=== PATIENT | female | born 2005 | race Two or more races ===

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

== ENCOUNTER 2024-01-12 20:26 | Emergency (ER) | payer MEDICAID ==
[~2024-01-12] VITALS: Ht 162.6 cm; Wt 65.0 kg
[~2024-01-12 20:26] MED LIST changes: +CEFP200T15 PO; +FOLI-119 PO; +PREN-96 PO
[2024-01-12] MEDS: ACETAMINOPHEN 500 MG TAB PO ONE (22:13)
[2024-01-12] MEDS: ONDANSETRON ODT 4 MG TAB PO ONE (22:18)
[2024-01-13 00:04] LABS: Urine Bacteria FEW /hpf (None Seen); Urine Blood Negative /uL (Negative); Urine Clarity Turbid (Clear); Urine Color Yellow (Yellow); Urine Mucus FEW (None Seen); Urine Protein, UAD TRACE (Negative); Urine Urobilinogen Normal (Negative); Urine WBC 26 /hpf (0 - 5); Urine pH 5.5 (5.0-9.0)
[2024-01-13] MEDS ORDERED: NITR-87 PO (00:28)
[2024-01-13] MEDS ORDERED: ZOFR4T PO (00:28)
[2024-01-13] MEDS ORDERED: ACET500T58 PO (00:28)
[2024-01-13] MEDS: NITROFURANTOIN 100 mg CAP PO ONE (00:34)
[2024-01-13 00:40] VITALS: BP 123/62; PULSE 74; RESP 16; TEMP 98.2; O2SAT 100
== END 2024-01-13 00:42 | disposition home or self-care (01) ==
LOC: ER 20:26
DX: O23.41 Unspecified infection of urinary tract in pregnancy, first trimester (principal); Z3A.01 Less than 8 weeks gestation of pregnancy; Z79.899 Other long term (current) drug therapy
CPT/HCPCS: 81001; 99284; Q0162

== ENCOUNTER 2024-03-12 18:14 | Inpatient (IN) | payer MEDICAID ==
[~2024-03-12] VITALS: Ht 160 cm; Wt 58.6 kg
[~2024-03-12 18:14] MED LIST changes: +ACET500T58 PO; +NITR-87 PO
[2024-03-12 19:38] LABS: Urine Bacteria MOD /hpf (None Seen); Urine Blood Negative /uL (Negative); Urine Clarity Turbid (Clear); Urine Color Yellow (Yellow); Urine Mucus MODERATE (None Seen); Urine Protein, UAD 1+ (Negative); Urine Specific Gravity 1.026 (1.001-1.035); Urine Urobilinogen 4 mg/dL (Negative); Urine WBC 13 /hpf (0 - 5); Urine pH 5.5 (5.0-9.0)
[2024-03-12 19:52] LABS: Basophils # (auto) 0 10 ^3/uL (0-0.2); Basophils % (auto) 0.1 % (0.0-2.0); Eosinophils # (auto) 0 10 ^3/uL (0-0.8); Hematocrit 31.8 % (36.0-46.0); Hemoglobin 11.2 g/dL (12.2-16.2); Lymphocytes # (auto) 0.8 10 ^3/uL (0.4-5.4); Lymphocytes % (auto) 4.4 % (10.0-50.0); Mean Corpuscular Hemoglobin 32.6 pg (28.0-32.0); Mean Corpuscular Hgb Conc. 35.2 g/dL (32.0-36.0); Mean Corpuscular Volume 92.5 fL (80.0-100.0); Monocytes # (auto) 1.1 10 ^3/uL (0-1.3); Monocytes % (auto) 5.8 % (0.0-12.0); Neutrophils # (auto) 16.3 10 ^3/uL (1.6-8.6); Neutrophils % (auto) 89.7 % (37.0-80.0); Red Blood Cells 3.44 10^6/uL (4.0-5.20); Red Cell Distribution Width 13.3 % (11.8-14.3); White Blood Cell 18.1 10^3/uL (4.4-10.8)
[2024-03-12 20:07] LABS: Anion Gap 13 (5-15); Carbon Dioxide 18 mmol/L (20-30); Chloride 103 mmol/L (98-107); Potassium 3.8 mmol/L (3.5-5.1); Sodium 134 mmol/L (136-145)
[2024-03-12 20:08] LABS: Calcium 9.3 mg/dL (8.7-10.4)
[2024-03-12 20:13] LABS: BUN/Creatinine Ratio 10.1 (10.0-20.0); Blood Urea Nitrogen 7 mg/dL (9-23); Glucose 104 mg/dL (74-106)
[2024-03-12] MEDS ORDERED: NITROGLYCERIN 0.4 MG SL TAB SL PRN (21:15)
[2024-03-12] MEDS ORDERED: MORPHINE SULFATE INJ 2 MG/ml SYRG IV PRN (21:15)
[2024-03-12] MEDS ORDERED: ONDANSETRON HCL 4 MG/2 ML VIAL IV PRN (21:15)
[2024-03-12] MEDS: NITROFURANTOIN 100 mg CAP PO ONE (23:19)
[2024-03-12] MEDS: ONDANSETRON HCL 4 MG/2 ML VIAL IV ONE (23:19)
[2024-03-12] MEDS: cefTRIAXone 1GM/50ML D5W 50 ML IV ONE (23:19)
[2024-03-12 23:21] VITALS: PULSE 99; RESP 16; O2SAT 100
[2024-03-12] MEDS: SODIUM CHLORIDE 0.9% 1,000 ML IVB ONE (23:21)
[2024-03-13] VITALS (9 sets, daily range): BP systolic 96–105; BP diastolic 48–66; PULSE 85–111; RESP 15–20; TEMP 97.8–108; O2SAT 96–100
[2024-03-13 06:53] LABS: Anion Gap 13 (5-15); Carbon Dioxide 17 mmol/L (20-30); Chloride 106 mmol/L (98-107); Potassium 3.3 mmol/L (3.5-5.1); Sodium 136 mmol/L (136-145)
[2024-03-13 06:54] LABS: Calcium 8.6 mg/dL (8.7-10.4)
[2024-03-13 06:59] LABS: Glucose 85 mg/dL (74-106)
[2024-03-13 07:00] LABS: BUN/Creatinine Ratio 9.6 (10.0-20.0); Blood Urea Nitrogen < 5 mg/dL (9-23)
[2024-03-13 07:01] LABS: Basophils # (auto) 0 10 ^3/uL (0-0.2); Basophils % (auto) 0.1 % (0.0-2.0); Eosinophils # (auto) 0 10 ^3/uL (0-0.8); Hematocrit 30.2 % (36.0-46.0); Hemoglobin 10.5 g/dL (12.2-16.2); Lymphocytes # (auto) 1.1 10 ^3/uL (0.4-5.4); Lymphocytes % (auto) 6.5 % (10.0-50.0); Mean Corpuscular Hemoglobin 32.4 pg (28.0-32.0); Mean Corpuscular Hgb Conc. 34.8 g/dL (32.0-36.0); Mean Corpuscular Volume 93.3 fL (80.0-100.0); Monocytes # (auto) 1.2 10 ^3/uL (0-1.3); Monocytes % (auto) 7.3 % (0.0-12.0); Neutrophils # (auto) 14.5 10 ^3/uL (1.6-8.6); Neutrophils % (auto) 86.1 % (37.0-80.0); Red Blood Cells 3.23 10^6/uL (4.0-5.20); Red Cell Distribution Width 13.1 % (11.8-14.3); White Blood Cell 16.8 10^3/uL (4.4-10.8)
[2024-03-13] MEDS: SODIUM CHLORIDE 0.9% 1,000 ML IV SCH (18:04)
[2024-03-13] MEDS: cefTRIAXone 1GM/50ML D5W 50 ML IV ONE (18:05)
[2024-03-13] MEDS: ACETAMINOPHEN 325 MG TAB PO PRN (21:11)
[2024-03-14] VITALS (7 sets, daily range): BP systolic 90–100; BP diastolic 53–68; PULSE 64–82; RESP 14–17; TEMP 97.3–97.8; O2SAT 98–100
[2024-03-14 06:14] LABS: Basophils # (auto) 0 10 ^3/uL (0-0.2); Basophils % (auto) 0.2 % (0.0-2.0); Eosinophils # (auto) 0 10 ^3/uL (0-0.8); Eosinophils % (auto) 0.5 % (0.0-7.0); Hematocrit 30.5 % (36.0-46.0); Hemoglobin 10.6 g/dL (12.2-16.2); Lymphocytes # (auto) 1.6 10 ^3/uL (0.4-5.4); Lymphocytes % (auto) 17.1 % (10.0-50.0); Mean Corpuscular Hemoglobin 32.5 pg (28.0-32.0); Mean Corpuscular Hgb Conc. 34.9 g/dL (32.0-36.0); Mean Corpuscular Volume 93.2 fL (80.0-100.0); Monocytes # (auto) 0.9 10 ^3/uL (0-1.3); Monocytes % (auto) 9.5 % (0.0-12.0); Neutrophils # (auto) 6.9 10 ^3/uL (1.6-8.6); Neutrophils % (auto) 72.7 % (37.0-80.0); Red Blood Cells 3.27 10^6/uL (4.0-5.20); Red Cell Distribution Width 13.2 % (11.8-14.3); White Blood Cell 9.4 10^3/uL (4.4-10.8)
[2024-03-14 06:20] LABS: Anion Gap 7 (5-15); Carbon Dioxide 25 mmol/L (20-30); Chloride 107 mmol/L (98-107); Potassium 3.8 mmol/L (3.5-5.1); Sodium 139 mmol/L (136-145)
[2024-03-14 06:21] LABS: Calcium 8.8 mg/dL (8.7-10.4)
[2024-03-14 06:26] LABS: Glucose 87 mg/dL (74-106)
[2024-03-14 06:30] LABS: BUN/Creatinine Ratio 11.4 (10.0-20.0); Blood Urea Nitrogen < 5 mg/dL (9-23)
[2024-03-14] MEDS: cefTRIAXone 1GM/50ML D5W 50 ML IV SCH (09:09)
[2024-03-15 01:00] VITALS: BP 111/78; PULSE 71; RESP 14; TEMP 97.8; O2SAT 100
[2024-03-15 05:00] VITALS: BP 101/56; PULSE 70; RESP 16; TEMP 97.7; O2SAT 98
[2024-03-15 05:53] LABS: Basophils # (auto) 0 10 ^3/uL (0-0.2); Basophils % (auto) 0.3 % (0.0-2.0); Eosinophils # (auto) 0.1 10 ^3/uL (0-0.8); Eosinophils % (auto) 1.6 % (0.0-7.0); Hematocrit 29.7 % (36.0-46.0); Hemoglobin 10.3 g/dL (12.2-16.2); Lymphocytes # (auto) 2.2 10 ^3/uL (0.4-5.4); Lymphocytes % (auto) 32.7 % (10.0-50.0); Mean Corpuscular Hemoglobin 32.4 pg (28.0-32.0); Mean Corpuscular Hgb Conc. 34.8 g/dL (32.0-36.0); Mean Corpuscular Volume 93.2 fL (80.0-100.0); Monocytes # (auto) 0.5 10 ^3/uL (0-1.3); Monocytes % (auto) 8.1 % (0.0-12.0); Neutrophils # (auto) 3.9 10 ^3/uL (1.6-8.6); Neutrophils % (auto) 57.3 % (37.0-80.0); Red Blood Cells 3.19 10^6/uL (4.0-5.20); White Blood Cell 6.7 10^3/uL (4.4-10.8)
[2024-03-15 06:08] LABS: Chloride 107 mmol/L (98-107); Potassium 3.8 mmol/L (3.5-5.1); Sodium 138 mmol/L (136-145)
[2024-03-15 06:09] LABS: Anion Gap 6 (5-15); Calcium 8.7 mg/dL (8.7-10.4); Carbon Dioxide 25 mmol/L (20-30)
[2024-03-15 06:14] LABS: Glucose 78 mg/dL (74-106)
[2024-03-15 06:19] LABS: BUN/Creatinine Ratio 11.1 (10.0-20.0); Blood Urea Nitrogen < 5 mg/dL (9-23)
[2024-03-15 08:00] VITALS: PULSE 97
[2024-03-15 08:14] VITALS: BP 101/62; PULSE 68; RESP 19; TEMP 98; O2SAT 99
[2024-03-15] MEDS ORDERED: CEPH250C PO (12:26)
[2024-03-15 13:00] VITALS: BP 110/65; PULSE 81; RESP 18; TEMP 98; O2SAT 98
== END 2024-03-15 15:50 | disposition home or self-care (01) | DRG 566 ==
LOC: ER 18:14 → TELE 21:16 → TELE-CENTR 21:16
PROVIDERS: ADMIT Internal Medicine; ATTEND Emergency Medicine
DX: O98.812 Other maternal infectious and parasitic diseases complicating pregnancy, second trimester (principal); A41.9 Sepsis, unspecified organism; N10 Acute pyelonephritis; O23.02 Infections of kidney in pregnancy, second trimester; O21.9 Vomiting of pregnancy, unspecified; Z3A.16 16 weeks gestation of pregnancy; Z79.899 Other long term (current) drug therapy
CPT/HCPCS: 36415; 76775; 76801; 80048; 81001; 82010; 84702; 85025; 87040; 87086; 96365; 96375; G0378; J2405